=== PATIENT | female | born 1985 | race Hispanic/Latino ===

== ENCOUNTER → 2024-08-13 | Outpatient (CLI) | payer OTHER ==
--- NOTE | 2024-08-14 09:50 | HMCIMG ---
PROCEDURE: MIKE DIAGNOSTIC BILATERAL, US BREAST BILATERAL HISTORY: Breast pain COMPARISON: None TECHNIQUE: Bilateral digital diagnostic mammogram with CAD was performed. No additional views were obtained. Additional tomosynthesis images were obtained of both breasts. Bilateral breast ultrasound study was also obtained. FINDINGS: The breasts are extremely dense which lowers the sensitivity of mammogram. There is no evidence of a dominant mass, or suspicious microcalcification. There is no evidence of nipple retraction or skin thickening. No evidence of cystic or hypoechoic mass is seen of either breast in the ultrasound study. Slight axillary lymph node measuring 7 x 5 x 10 mm. There is left axillary lymph node measuring 12 x 4 x 6 mm. IMPRESSION: 1. Stable mammogram. No evidence of cystic or hypoechoic mass is seen. BI-RADS: CATEGORY 2: BENIGN FINDINGS Recommend monthly self breast exam as well as annual clinical examination. A negative x-ray should not delay biopsy if a dominant or clinically suspicious mass is present, since 8-10% of cancers are not identified by mammography. Dense breasts particularly, may obscure an underlying neoplasm. Some of these may be detected clinically and therefore, clinical examination is an essential part of breast evaluation.
== END | disposition home or self-care (01) ==
LOC: RAH 13:46
PROVIDERS: ATTEND Family Medicine
DX: Z12.39 Encounter for other screening for malignant neoplasm of breast (principal); N63.0 Unspecified lump in unspecified breast; N63.11 Unspecified lump in the right breast, upper outer quadrant; R92.30 Dense breasts, unspecified
CPT/HCPCS: 77062; 77066